=== PATIENT | male | born 1945 | race Caucasian/White ===

== ENCOUNTER → 2024-02-05 07:13 | Outpatient (REF) | payer MEDICARE, OTHER, SELFPAY ==
[2024-02-05 09:19] LABS: HDL Cholesterol 40 mg/dl; LDL Cholesterol, Calculated 98 mg/dl; Total Cholesterol 159 mg/dl (50-199); Triglyceride 109 mg/dl (10-149); Very Low Density Lipoprotein 21 mg/dl (0-30)
[2024-02-05 11:40] LABS: Glycohemoglobin (HgbA1c) 6.8 % (4.0-5.6)
== END ==
LOC: REG 07:13
PROVIDERS: ATTENDING PHYSICIAN Family Medicine
DX: E11.22 Type 2 diabetes mellitus with diabetic chronic kidney disease (principal)
CPT/HCPCS: 36415; 80061; 83036

== ENCOUNTER → 2024-02-06 10:07 | Outpatient (REF) | payer MEDICARE, OTHER, SELFPAY ==
[2024-02-06 11:34] LABS: ALT (SGPT) 37 U/L (0-50); AST (SGOT) 44 U/L (17-59); Albumin 4.5 g/dl (3.5-5.0); Alkaline Phosphatase 95 U/L (38-126); Blood Urea Nitrogen 28 mg/dl (9-20); Calcium 9.9 mg/dl (8.4-10.2); Carbon Dioxide 25 mmol/L (22-30); Chloride 102 mmol/L (98-107); Glucose 131 mg/dl (70-99); Potassium 4.8 mmol/L (3.5-5.1); Sodium 142 mmol/L (135-145); Total Protein 7.6 g/dl (6.3-8.2); eGFR 52.09
== END ==
LOC: REG 10:07
PROVIDERS: ATTENDING PHYSICIAN Family Medicine
DX: E11.22 Type 2 diabetes mellitus with diabetic chronic kidney disease (principal); N18.31 Chronic kidney disease, stage 3a; I12.9 Hypertensive chronic kidney disease with stage 1 through stage 4 chronic kidney disease, or unspecified chronic kidney disease; Z12.11 Encounter for screening for malignant neoplasm of colon
CPT/HCPCS: 36415; 80053

== ENCOUNTER → 2024-12-03 12:37 | Outpatient (REF) | payer MEDICARE, OTHER, SELFPAY | LOC: RCS 12:37 | PROVIDERS: ATTENDING PHYSICIAN Internal Medicine Cardiovascular Disease; FAMILY PHYSICIAN Family Medicine | DX: R06.02 Shortness of breath (principal) | CPT/HCPCS: 93306 ==

== ENCOUNTER 2024-12-04 14:30 | Inpatient (IN) | payer MEDICARE, OTHER, SELFPAY ==
[2024-12-04] VITALS (14 sets, daily range): BP systolic 103–150; BP diastolic 62–111; BMI 31.8
[2024-12-04 11:25] LABS: Hematocrit 47.0 % (39.0-52.0); Hemoglobin 16.4 g/dL (13.0-18.0); Mean Corp Hgb Conc. 34.9 g/dL (33.0-37.0); Mean Corpuscular Volume 98.3 fL (80.0-94.0); Nucleated Red Blood Cells % 0 % (-); Platelet Count 129 10^3/uL (130-400); Red Cell Dist. Width 14.7 % (11.5-14.5)
[2024-12-04 11:33] LABS: INR 1.01; PT 13.8 Sec (11.4-14.6)
[2024-12-04 11:34] LABS: APTT 32.4 Sec (23.4-35.0)
[2024-12-04 11:41] LABS: ALT (SGPT) 37 U/L (0-50); AST (SGOT) 43 U/L (17-59); Albumin 4.6 g/dl (3.5-5.0); Alkaline Phosphatase 103 U/L (38-126); Blood Urea Nitrogen 19 mg/dl (9-20); Calcium 9.7 mg/dl (8.4-10.2); Carbon Dioxide 20 mmol/L (22-30); Chloride 108 mmol/L (98-107); Estimated Creatinine Clearance 62 ml/min; Glucose 148 mg/dl (70-99); Potassium 4.4 mmol/L (3.5-5.1); Sodium 140 mmol/L (135-145); Total Protein 8.5 g/dl (6.3-8.2); eGFR > 60.00
--- NOTE | 2024-12-04 11:44 | CON.CAR ---
Addendum entered and electronically signed by Morris Jordan MD 12/04/24 15:40:
Attending addendum: Patient seen and examined. PA note reviewed and findings independently confirmed by me. Briefly, this is a 78-year-old gentleman who reported the relatively recent onset of exertional chest tightness and dyspnea. He is a
longstanding diabetic with a history of hypertension and hyperlipidemia. He has been diabetic for about 15 years with reportedly reasonably well-controlled hemoglobin A1c. He states that his symptoms have been occurring at fairly low levels of
exertion. He experienced chest discomfort after walking on the treadmill for 3-1/2 minutes with symptoms improving with rest. Stress images were without transient ischemia and perfusion appears normal. However, given his history and high risk
stress study findings he is referred for coronary angiography.
GEN: AAO x 3.��No acute distress
HEENT:��NC/AT, sclera are anicteric, hearing and nares are normal.
NECK: Supple.��Normal JVP
LUNGS: Clear to bases bilaterally.��No wheezing
CV: Regular rate and rhythm.��Normal S1/S2.��Murmur: II/ USB
ABD : Soft, NT, ND, No HSM
EXT: No CCE
NEURO: No focal neurologic deficits
RECOMMENDATION:
-Refer for coronary angiography
-I met with the patient and his brother to review the catheterization procedure including risk and benefit. Took time to answer all questions.
Original Note:
Consultation
Consultation Request
Date/Time Consultation Performed: 12/04/24
Performing Provider: Keyla Lorenzo PA-C for Dr. Jordan
Reason for Consultation: CP, SOB during stress testing
Medical History
-
Chief Complaint: CP, SOB with exertion
History of Present Illness:
Patient is a 78-year-old male with past medical history of hypertension, hyperlipidemia, type 2 diabetes, mild , gout, CKD who was seen in cardiology office as new patient several weeks ago due to complaints of exertional dyspnea and chest
tightness, relieved with rest. Reports has never had rest pain. Does report that his symptoms seem to be progressing over the last several months. His brother at bedside relates that with recent travel to [place] he was rarely able to keep up with
the group on tours and was 'huffing and puffing'. He states then most recently when they went to [place] he was having significant difficulty with exertion and frequently needed to stop to rest. Had echo with preserved EF and mild . He was
arranged for exercise nuclear stress test and at 3.5-minute alycia developed recurrence of symptoms, again relieved by rest. Stress imaging without clear ischemia and TID within normal limits, but did not meet target heart rate. He was referred to
the ER for evaluation and cardiac catheterization. He is presently chest pain-free. He reports he feels his blood sugars have been relatively well-controlled. Denies known history of lung disease. Remote prior cigar use.
PMH:
Hypertension
Hyperlipidemia
Type 2 diabetes
Mild
Gout
CKD
Remote cigar use
FH of CAD
Past Medical History
Past Medical History: Other (in HPI)
Social History
Tobacco: Former Smoker (cigars)
Personal:
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
Family History
Family History: CAD (CABG in father)
Allergies / Home Medications
Allergy/AdvReac Type Severity Reaction Status Date / Time
Penicillins Allergy Unknown Verified 07/01/17 12:07
�Medication �Instructions �Recorded �Confirmed �Type
allopurinol 300 mg tablet 300 mg PO DAILY 07/01/17 07/01/17 History
atenolol 50 mg-chlorthalidone 25 1 tab PO DAILY 07/01/17 07/01/17 History
mg tablet (Tenoretic)
colchicine 0.6 mg tablet 0.6 mg PO PRN PRN gout 07/01/17 07/01/17 History
lisinopril 10 mg tablet 10 mg PO DAILY 07/01/17 07/01/17 History
meloxicam 7.5 mg tablet 7.5 mg PO PRN PRN prn 07/01/17 07/01/17 History
sertraline 50 mg tablet 50 mg PO DAILY 07/01/17 07/01/17 History
simvastatin 20 mg tablet 20 mg PO DAILY 07/01/17 07/01/17 History
ciprofloxacin HCl 500 mg tablet 500 mg PO BID #6 tabs 07/03/17 Rx
(Cipro)
metformin 1,000 mg tablet 1,000 mg PO BID ##0 07/03/17 07/01/17 Rx
Review of Systems
-
History Source: Patient and Family
All other systems: Negative unless noted
Physical Exam
Vital Signs
Temp Pulse Resp BP Pulse Ox
97.7 F 79 15 135/85 95
12/04/24 10:07 12/04/24 11:00 12/04/24 11:00 12/04/24 11:00 12/04/24 11:00
Physical Exam
General: No Apparent Distress and Comfortable
HEENT: Normocephalic, Anicteric and Moist Mucous Membranes
Respiratory: Clear and Non Labored Respirations
Cardiac: S1/S2, Regular Rhythm and Murmur
GI: Soft, Non Tender, Non Distended and Normal Bowel Sounds
Musculoskeletal: No Clubbing, No Cyanosis and No Edema
Skin: Warm and Dry
Neuro: AO x 3
Impression / Plan
-
Primary Construction Site Crossing Guard: Dr. Rincon
Assessment:
Exertional dyspnea/chest and jaw discomfort
Abnormal Stress test, recurrence of above symptoms during
Concern for [place]
Hypertension
Hyperlipidemia
Type 2 diabetes
Mild
Gout
CKD
Remote cigar use
FH of CAD
ECHO 12/03/24: EF 60%, mild with mean pressure gradient 9 mmHg, trace AR, no significant change compared to prior, no regional wall motion abnormalities noted
Plan:
- Patient was seen in office 2 weeks ago for symptoms of exertional dyspnea and chest/jaw discomfort. No symptoms ever occurring at rest. Presented for stress test today and had recurrence of above symptoms with exercise, improved with resting.
Referred to ER and plan for cardiac catheterization today
- Initial troponin negative
- Presently chest pain-free
- Given 324 mg aspirin in ER
- EKG sinus rhythm with first-degree AV block and PACs
- Further recommendations pending results of cardiac catheterization
- Creatinine stable at 1.2
- Check lipid panel and hemoglobin A1c
- Discussed procedure with patient and brother at bedside in detail
- Discussed with primary shooter helper
Data Reviewed
-
EKG: Tracing Personally Visualized and interpreted
Medical Tests (Nuc Med, Echo etc): Report Reviewed by me
Labs: Labs Reviewed by me
Old Records: Reviewed
[2024-12-04 11:51] LABS: Troponin I 0.012 ng/ml
[2024-12-04] MEDS: LOW STRENGTH ASPIRIN 324 MG PO (11:54)
[2024-12-04 14:31] LABS: D-Dimer 0.57 ug/mlFEU (0.00-0.50)
--- NOTE | 2024-12-04 15:00 | PTCARENOTE ---
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 Pt is Ox3 and appropriate, not complaining of any jaw pressure like he was during the earlier stress test. 1� AVB on tele with occasional PAC's. R band intact with no oozing or hematoma. Breath sounds are clear,
97% on RA. Stress inc, gave pt a pad and disposable underwear for the night. Tolerating diet without issue. Skin intact. IV sites intact. Call grijalva within reach. Pt makes needs known.
--- NOTE | 2024-12-04 15:20 | CONSULT.CT ---
Consultation
-
Date/Time Consultation Requested: 12/04/24
Date/Time Consultation Performed: 12/04/24
Requesting Provider: Julian
Performing Provider: Francine Martinez PA-C for Dr. Tyler Caputo
Reason for Consultation: CABG eval
Patient History
Physicians
Family Physician: Nathaniel Loco
Outpatient Appeals Board Referee: Mckenzie
Inpatient Appeals Board Referee: ALVARADO
History of Present Illness
Patient is a very pleasant 78-year-old male who presented to outpatient cardiology with complaints of significant shortness of breath and jaw tightness with minimal exertion. He was then scheduled for a stress test this morning which was markedly
positive and went straight for left heart catheterization this afternoon. Patient was noted to have severe multivessel coronary artery disease, CT surgery consulted for evaluation for CABG.
Past Medical History
HTN
HLD
NIDDM
bells palsy 2003
Past Surgical History
excision of left neck abscessed lymph node
Family History
Father: at Age (86)
Family Medical History: CAD (Father with hx bypass surgery)
Social History
Alcohol: Occasional (<1 drink/month)
Drug: None
Tobacco: Former Smoker (remote use of cigars)
Personal:
Living: Alone
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
Allergies
Allergy/AdvReac Type Severity Reaction Status Date / Time
Penicillins Allergy Unknown Verified 07/01/17 12:07
Home Medications
�Medication �Instructions �Recorded �Confirmed �Type
allopurinol 300 mg tablet 300 mg PO DAILY 07/01/17 07/01/17 History
atenolol 50 mg-chlorthalidone 25 1 tab PO DAILY 07/01/17 07/01/17 History
mg tablet (Tenoretic)
colchicine 0.6 mg tablet 0.6 mg PO PRN PRN gout 07/01/17 07/01/17 History
lisinopril 10 mg tablet 10 mg PO DAILY 07/01/17 07/01/17 History
meloxicam 7.5 mg tablet 7.5 mg PO PRN PRN prn 07/01/17 07/01/17 History
sertraline 50 mg tablet 50 mg PO DAILY 07/01/17 07/01/17 History
simvastatin 20 mg tablet 20 mg PO DAILY 07/01/17 07/01/17 History
ciprofloxacin HCl 500 mg tablet 500 mg PO BID #6 tabs 07/03/17 Rx
(Cipro)
metformin 1,000 mg tablet 1,000 mg PO BID ##0 07/03/17 07/01/17 Rx
Review of Systems
-
History Source: Patient
General: Reports No Symptoms
Respiratory: Reports SOB and THURMAN
Cardiac: Reports Other (jaw tightness); Denies Chest Pain
Abdomen/GI: Reports No Symptoms
: Reports No Symptoms
Musculoskeletal: Reports No Symptoms
Skin: Reports No Symptoms
Neurological: Reports No Symptoms
Vascular: Reports No Symptoms
Physical Exam
Vital Signs
Temp 97.7 F 12/04/24 10:07
Temp route: Oral 12/04/24 10:07
Pulse 88 12/04/24 14:21
Resp Rate 16 12/04/24 14:21
Blood pressure 148/93 12/04/24 13:00
MAP (cuff-Mellisa Monitor) 103 12/04/24 13:00
SaO2 95 12/04/24 14:21
Oxygen Mode of Delivery Room air 12/04/24 14:21
Can the patient verbally communicate their pain? Yes 12/04/24 14:42
Actual Weight 100.5 kg 12/04/24 11:02
Body Mass Index (BMI) 31.8 12/04/24 11:02
Labs
12/04/24 11:43
12/04/24 11:43
PT 13.8 Sec (11.4-14.6) 12/04/24 11:17
APTT 32.4 Sec (23.4-35.0) 12/04/24 11:17
Hemoglobin A1c Cancelled 12/04/24 11:43
Troponin I 0.012 ng/ml 12/04/24 11:17
Exam
General: Well Developed, Well Nourished and No Apparent Distress
HEENT: Normocephalic
Neck: Negative JVD or Carotid Bruit
Respiratory: Clear; Negative Wheezes, Crackles or Rhonchi
Cardiac: Regular Rhythm; Negative Murmur or Rub
GI: Soft and Non Tender
Skin: Warm and Dry
Neuro: Nonfocal/Grossly Intact
Extremities: Negative Lower Level Edema
Lymph: No Lymphadenopathy
Psych: Calm
Assessment / Plan
-
positive stress test
angina
multivessel CAD
NIDDM
Films reviewed in detail by Dr. Caputo. Unfortunately his severely diseased coronaries are not amenable to bypass surgery. Dr. Caputo discussed with Dr. Jordan. likely plan for medical management at this time. Please call with questions.
Data Reviewed
-
Registered Dental Assistant: Report Reviewed by me and Discussed with Physician
Echo: Report Reviewed by me and Discussed with Physician
--- NOTE | 2024-12-04 15:31 | ITS.CL.CATH ---
Clinical Studies Specialist - Catheterization
Cardiac Catheterization
Procedure Report:
LEFT HEART CATHETERIZATION
Date of Procedure: December 04, 2024
Referring: Dr. Noah Rincon
PROCEDURES:
1. Left heart catheterization with coronary and single-plane left ventriculography
INDICATION: Chest pain with poor exercise tolerance achieving only 3.5 minutes on a standard Kehinde protocol. Exertional chest discomfort and dyspnea over the past 3 months. Longstanding diabetic and multitude of cardiovascular risk factor. Mild
aortic stenosis with a mean aortic valve gradient of 9 mmHg
ACCESS: Right radial artery, 6 Swedish sheath
HEMODYNAMICS : (mmHg)
AO (s/d) : 124/74
LV (s/d) : 146/13
LVEDP : 24
CORONARY FINDINGS: Three-vessel coronary calcification
DOMINANCE: Left but the right coronary artery was not assessed and thought to be occluded near its origin
LEFT MAIN: Short and unobstructed
LEFT ANTERIOR DESCENDING: The LAD is heavily calcified as it arises from the left main and runs in the anterior interventricular groove. There is a 90% proximal stenosis and 90% stenosis in the mid vessel before the only sizable diagonal branch.
The distal LAD beyond the diagonal branch becomes occluded with the apical vessel noted to fill via left to left collaterals
CIRCUMFLEX: The circumflex is heavily calcified and diffusely diseased vessel. The first obtuse marginal branch arises proximally and is a small caliber vessel. The second obtuse marginal branch appears larger and is occluded in its midportion
with the distal vessel filling via faint left to left collaterals. The circumflex continues in the AV groove with an 80% stenosis and supplies at least 1 small-moderate caliber posterolateral branch. I do not see a PDA fill well. The circumflex
continues in the AV groove and it is difficult to tell whether this is collateralized from the right coronary artery or chilkoot circumflex
RIGHT CORONARY ARTERY: The origin of the right coronary artery was never selectively cannulated and felt to be occluded near its origin.
VENTRICULOGRAPHY: Left ventriculography is performed in an STACK projection. The digital single-plane left ventricular ejection fraction is estimated at 60%. There is apical akinesis and distal inferior hypokinesis
SEDATION: 37 minutes of procedural sedation was utilized. An independent chief medical technologist was present to assist with and help manage the patient's level of consciousness and physiologic status.
RADIATION SUMMARY: Fluoro Time (min): 7.2, Dose (mGy): 756, DAP (Gy.cm2) : 53.5
Closure Device: TR band
CONCLUSIONS
1. Severe multivessel coronary artery disease as described above
2. Preserved LV systolic function
RECOMMENDATIONS
1. Patient will be admitted for CT surgical evaluation given progressive nature of his symptoms which are now occurring at lower levels of exertion
2. Maximize medical therapy
Copy to: Dr. Noah Rincon
--- NOTE | 2024-12-04 16:26 | CM ---
Chart reviewed. Patient is independent of ADLS, lives alone in a 2 STH, 1st level set up, total of 6 NICHOL, 0 DME.
Preoperative and postoperative instructions and restrictions, along with showering instructions provided to the patient. Gave patient a Cardiac Surgery Book. Patient is agreeable to a home visit by CT Transitional RN. Patient with a supportive
brother who will be checking in on the patient. Plan is for the patient to return home wit CT Transitional RN. CM to follow
--- NOTE | 2024-12-04 16:46 | CM ---
Pricing on [facility] through the patient's prescription plan, ID # [id number], , is $144. 59 for a 30 day supply. Free 30 day coupon placed in the patient's red discharge folder.
[2024-12-04] MEDS: NOVOLOG FLEXPEN-MODERATE RESISTANCE SC (17:58)
[2024-12-04] MEDS: LIPITOR 80 MG PO (18:12)
[2024-12-04] MEDS: COREG 6.25 MG PO (20:15)
--- NOTE | 2024-12-04 20:40 | PTCARENOTE ---
Pt aaox3, resting in bed at this time, brother at bedside. R radial cath site with CDI dressing, no swelling or bruising noted, denies pain, Pox 96% RA on the R hand. SR on the monitor, w/ 1st degree HB, HR 90's, VSS. Call grijalva within reach.
[2024-12-04 21:58] LABS: Glucose - Point of Care 132 mg/dl (70-99)
[2024-12-05] VITALS (8 sets, daily range): BP systolic 94–145; BP diastolic 53–100; BMI 31.3
[2024-12-05 05:00] LABS: Hematocrit 44.1 % (39.0-52.0); Hemoglobin 15.2 g/dL (13.0-18.0); Mean Corp Hgb Conc. 34.5 g/dL (33.0-37.0); Mean Corpuscular Volume 98.2 fL (80.0-94.0); Platelet Count 110 10^3/uL (130-400); Red Cell Dist. Width 14.5 % (11.5-14.5)
[2024-12-05 05:12] LABS: Blood Urea Nitrogen 17 mg/dl (9-20); Calcium 9.2 mg/dl (8.4-10.2); Carbon Dioxide 22 mmol/L (22-30); Chloride 108 mmol/L (98-107); Estimated Creatinine Clearance 68 ml/min; Glucose 145 mg/dl (70-99); HDL Cholesterol 31 mg/dl; LDL Cholesterol, Calculated 136 mg/dl; Potassium 4.2 mmol/L (3.5-5.1); Sodium 138 mmol/L (135-145); Very Low Density Lipoprotein 35 mg/dl (0-30); eGFR > 60.00
[2024-12-05 07:56] LABS: Glucose - Point of Care 153 mg/dl (70-99)
[2024-12-05] MEDS: ZESTRIL 5 MG PO (08:00)
[2024-12-05] MEDS: COREG 6.25 MG PO (08:01)
[2024-12-05] MEDS: FARXIGA 10 MG PO (08:01)
[2024-12-05] MEDS: GLUCOTROL XL (EXTENDED RELEASE) 5 MG PO (08:01)
[2024-12-05] MEDS: LOW STRENGTH ASPIRIN 81 MG PO (08:01)
[2024-12-05] MEDS: ZYLOPRIM 300 MG PO (08:01)
[2024-12-05] MEDS: NORVASC 2.5 MG PO (08:02)
[2024-12-05] MEDS: NOVOLOG FLEXPEN-MODERATE RESISTANCE 1 UNITS SC (08:05)
--- NOTE | 2024-12-05 08:08 | W.PN.CARDCBS ---
Today's Communication / Plan
-
Continue medical management attempts for control of angina
Impression / Plan
-
Primary Dining Server: Dr. Rincon
Assessment:
Exertional dyspnea/chest and jaw discomfort
Abnormal Stress test, recurrence of above symptoms during
Concern for [place]
Hypertension
Hyperlipidemia
Type 2 diabetes
Mild
Gout
CKD
Remote cigar use
FH of CAD
ECHO 12/03/24: EF 60%, mild with mean pressure gradient 9 mmHg, trace AR, no significant change compared to prior, no regional wall motion abnormalities noted
Coronary angiography December 04, 2024 finds severe multivessel disease with preserved left ventricular systolic function. LVEDP 24
Lipid profile December 05, 2024 finds total cholesterol 202, LDL 136, HDL 31, triglycerides 176 and VLDL 35
Plan:
Evaluated by CT surgery. CT surgery feels that his severe coronary artery disease is poorly amenable to bypass surgery.
There has been discussion regarding adopting a course of medical management versus consideration for reevaluation for coronary artery bypass surgery.
He is currently pain-free
- Maintain aspirin 81 mg daily (added this admission)
- Maintain carvedilol 6.25 mg twice daily (substituted for atenolol this admission)
- Maintain Norvasc 2.5 mg daily (added this admission)
- Maintain atorvastatin 80 mg daily (added this admission)
We will plan to continue medical management to treat his anginal symptoms.
There have been some discussions regarding evaluation at [facility] with Dr Gilbert Browning (CT Surgery) for second opinion regarding consideration for coronary artery bypass grafting surgery.
I have discussed this case with the patient, Dr. Caputo, Dr. Jordan.
Total time spent today was 53 minutes in preparing to see the patient, seeing the patient and coordination of care. This included review of recent laboratory evaluations, cardiac testing, imaging studies, records as well as personally interviewing
and examining the patient, which included discussion of their tests, review/ordering medications, and communicating with other healthcare professionals and also treatment planning as well as counseling.
Progress Note - Dining Server
Subjective
Date of Service: December 05, 2024
He is sitting having breakfast and has no complaints at rest. No chest pain shortness of breath or palpitations.
Objective
Labs:
12/05/24 04:39
12/05/24 04:39
Labs
Hgb 15.2 g/dL (13.0-18.0) 12/05/24 04:39
Hct 44.1 % (39.0-52.0) 12/05/24 04:39
Plt Count 110 10^3/uL (130-400) L 12/05/24 04:39
PT 13.8 Sec (11.4-14.6) 12/04/24 11:17
INR 1.01 12/04/24 11:17
APTT 32.4 Sec (23.4-35.0) 12/04/24 11:17
Sodium 138 mmol/L (135-145) 12/05/24 04:39
Potassium 4.2 mmol/L (3.5-5.1) 12/05/24 04:39
BUN 17 mg/dl (9-20) 12/05/24 04:39
Creatinine 1.1 mg/dL (0.7-1.3) 12/05/24 04:39
Glucose 145 mg/dl (70-99) H 12/05/24 04:39
Troponins
12/04/24
11:17
Troponin I 0.012
Vital Signs and I&O:
Vital Signs
Temp Pulse Resp BP Pulse Ox
98.1 F 75 18 120/86 97
12/05/24 07:58 12/05/24 05:30 12/05/24 07:58 12/05/24 04:31 12/05/24 07:58
Vital Signs
Temp Pulse Resp BP Pulse Ox
98.1 F 75 18 120/86 97
12/05/24 07:58 12/05/24 05:30 12/05/24 07:58 12/05/24 04:31 12/05/24 07:58
Physical Exam
Physical Exam
Well-appearing elderly man in no acute distress
Regular rate and rhythm with normal S1 and S2, no S3 no S4 degree 1/6 apical holosystolic murmur no rubs
Lungs are clear to auscultation bilaterally without wheezes rales or rhonchi
Extremities no clubbing cyanosis or edema.
Abdomen soft nontender nondistended
Neurologic exam is nonfocal
[2024-12-05 09:08] LABS: Glycohemoglobin (HgbA1c) 7.5 % (4.0-5.6)
[2024-12-05 13:28] LABS: Glucose - Point of Care 117 mg/dl (70-99)
[2024-12-05] MEDS: NOVOLOG FLEXPEN-MODERATE RESISTANCE SC ×2 (14:07→17:30)
--- NOTE | 2024-12-05 14:23 | W.PN.UPDATE ---
Update Note
Progress Note Update
Attending addendum:
-Will start clopidogrel 600mg x 1 then 75 mg daily
-Increase Coreg for better HR control to 12.5 mg bid
-Increase amlodipine for better antianginal and BP control
-Protonix given dual antiplatelet
-CT TAVR protocol to assess coronary vessels. Discussed with Dr. Maurer
[2024-12-05] MEDS: PROTONIX 40 MG PO (14:50)
[2024-12-05] MEDS: PLAVIX 600 MG PO (14:50)
--- NOTE | 2024-12-05 15:18 | PTCARENOTE ---
Pt received this am with no c/o of chest pain or sob. Right rad site WNL. OOB ad whit, gait steady. C/o of mild nausea which has resolved.
--- NOTE | 2024-12-05 16:00 | PTCARENOTE ---
Assumed care of pt from prev RN; Pt AAOx3 w/no c/o CP or SOB. Pt's VSS w/HR in the 70's-80's & BP 145/99 this PM. Pt is SR w/1st deg AVB on telemetry monitoring. Pt w/R radial site w/dressing C/D/I w/no signs or symptoms of bleeding or hematoma. Pt
OOB to CH/amb in rm w/steady gait. Plan of care discussed & pt w/callbell within reach.
[2024-12-05 17:24] LABS: Glucose - Point of Care 114 mg/dl (70-99)
[2024-12-05] MEDS: LIPITOR 80 MG PO (18:51)
[2024-12-05 20:39] LABS: Glucose - Point of Care 292 mg/dl (70-99)
[2024-12-05] MEDS: COREG 12.5 MG PO (21:02)
--- NOTE | 2024-12-05 23:34 | PTCARENOTE ---
Assumed care on pt at 1900, aaox3, no c/o cp or SOB. SR w/1st degree AVB on telemetry monitoring. R radial site dressing CDI, no s/s of bleeding or hematoma. Call grijalva within reach, POC ongoing.
[2024-12-06 04:02] VITALS: BP 114/82
[2024-12-06 04:10] VITALS: BMI 31.6
[2024-12-06 04:50] LABS: Hematocrit 46.1 % (39.0-52.0); Hemoglobin 15.9 g/dL (13.0-18.0); Mean Corp Hgb Conc. 34.5 g/dL (33.0-37.0); Mean Corpuscular Volume 98.3 fL (80.0-94.0); Platelet Count 124 10^3/uL (130-400); Red Cell Dist. Width 14.4 % (11.5-14.5)
[2024-12-06 05:07] LABS: Blood Urea Nitrogen 25 mg/dl (9-20); Calcium 9.3 mg/dl (8.4-10.2); Carbon Dioxide 25 mmol/L (22-30); Chloride 105 mmol/L (98-107); Estimated Creatinine Clearance 53 ml/min; Glucose 150 mg/dl (70-99); Potassium 4.3 mmol/L (3.5-5.1); Sodium 138 mmol/L (135-145); eGFR 52.09
[2024-12-06 07:25] VITALS: BP 111/79
--- NOTE | 2024-12-06 07:57 | W.PN.CARDCBS ---
Addendum entered and electronically signed by Dolorse Davis PA-C 12/08/24 16:19:
[id number]
Addendum entered and electronically signed by Noah Rincon MD 12/06/24 10:14:
I saw and examined the patient.
The ELEMENTARY READING SPECIALIST or PA's note was reviewed and I agree with the note.
Comment: General: Well developed, well nourished in NAD.
Neck: Supple, no JVD, HJR, carotids +2 B/L, no bruits bilaterally.
Heart: Non displaced PMI, RRR, no murmurs, No S3, S4, no rubs.
Lungs: Scattered rhonchi
Extremities: No clubbing, cyanosis or edema bilaterally.
Neuro: Grossly nonfocal, awake, alert and oriented x3.
For CT to better evaluate RCA. Recheck renal profile in 1 week. Discharge later today if able to ambulate without chest pain or shortness of breath. Discharge time greater than 30 minutes.
Original Note:
Today's Communication / Plan
-
CT TAVR protocol today to visualize cors and get a better sense of RCA
Cre up to 1.4, but baseline prior to admission from 1.1 to 1.6 over the last 3 years. Recheck BMP this upcoming week
He might be able to go home today pending timing of CT and BP/symptoms
Impression / Plan
-
PCP: Dr. Loco
Primary Nurse Receptionist: Dr. Rincon
Assessment:
Admitted with exertional dyspnea/chest and jaw discomfort 12/04/24
Abnormal Stress test, recurrence of above symptoms during 12/04/24
Concern for USA
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
cath results with heavily calcified LAD with 90% prox and 90% mid lesions before the only sizable diagonal branch and distal LAD beyond the diagonal branch becomes occluded with the apical vessel noted to fill via left to left collaterals, Circ
heavily calcified and diffusely diseased vessel, small caliber OM-1, OM-2 larger with 100% midportion and distal vessel filling via faint left to left collaterals, Circ continues in the AV groove with an 80% stenosis and supplies at least 1
small-moderate caliber PLB, no signs of a PDA filing well, Circ continues in the AV groove and it is difficult to tell whether this is collateralized from the RCA or [place] circumflex, origin of the RCA was never selectively cannulated and felt to
be occluded near its origin 12/06/24
Hypertension
Hyperlipidemia
Type 2 diabetes
Mild
Gout
CKD
Remote cigar use
FH of CAD
AUDRA
ECHO 12/03/24: EF 60%, mild with mean pressure gradient 9 mmHg, trace AR, no significant change compared to prior, no regional wall motion abnormalities noted
Cath 12/04/24: finds severe multivessel disease with preserved left ventricular systolic function. LVEDP 24
Plan:
-Patient with chest pain during stress test at submax levels and referred for cath that showed MV CAD
-Patient with MV CAD by cath, RCA was not selectively cannulated and plan is for CT chest TAVR protocol 12/06/24 to better visualized cors and RCA in particular.
-Patient was evaluated for CABG by CT surgery at [facility] and not felt to be appropriate candidate for CABG due to lack of targets on the LAD. Plan is for medical management and reassess at tertiary care center. There have been some discussions
regarding evaluation at [facility] with Dr Gilbert Browning (CT Surgery) for second opinion regarding consideration for CABG.
-New to aspirin 81 mg daily
-New to Plavix, patient noted a migraine after 600 mg loading dose on 12/05/24 PM, recheck for symptoms after 75 mg daily dose started 12/06/24 AM.
-New to Coreg and dose increased to 12.5 mg BID 12/06/24. HP remains in the 80s, SR, no palpitations
-New to amlodipine and dose increased to 5 mg daily. BP 111/79 prior to morning meds, recheck BP and symptoms later in the day.
-Outpatient dose of lisinopril decreased to 5 mg daily to allow for antianginal meds to be increased. Now noted to have AUDRA so will hold as of 12/06/24
-LDL 136, new to atorvastatin 80 mg daily
-New to Farxiga 10 mg daily
-Cre up to 1.4 on 12/06/24 following cath 12/04/24. Labs in [facility] reviewed by me as far back as 2021 and Cre ranges from 1.1 to 1.6, but Cre was 1.1 on 12/05/24. Hold lisinopril for now.
Progress Note - Nurse Receptionist
Subjective
Date of Service: December 06, 2024
No chest pain, not feeling lightheaded seated in chair in his room
Objective
Labs:
12/06/24 04:08
12/06/24 04:08
Labs
Hgb 15.9 g/dL (13.0-18.0) 12/06/24 04:08
Hct 46.1 % (39.0-52.0) 12/06/24 04:08
Plt Count 124 10^3/uL (130-400) L 12/06/24 04:08
PT 13.8 Sec (11.4-14.6) 12/04/24 11:17
INR 1.01 12/04/24 11:17
APTT 32.4 Sec (23.4-35.0) 12/04/24 11:17
Sodium 138 mmol/L (135-145) 12/06/24 04:08
Potassium 4.3 mmol/L (3.5-5.1) 12/06/24 04:08
BUN 25 mg/dl (9-20) H 12/06/24 04:08
Creatinine 1.4 mg/dL (0.7-1.3) H 12/06/24 04:08
Glucose 150 mg/dl (70-99) H 12/06/24 04:08
Troponins
12/04/24
11:17
Troponin I 0.012
Vital Signs and I&O:
Vital Signs
Temp Pulse Resp BP Pulse Ox
97.8 F 105 18 114/82 95
12/06/24 07:22 12/06/24 06:00 12/06/24 07:22 12/06/24 04:02 12/06/24 07:22
Vital Signs
Temp Pulse Resp BP Pulse Ox
97.8 F 105 18 114/82 95
12/06/24 07:22 12/06/24 06:00 12/06/24 07:22 12/06/24 04:02 12/06/24 07:22
Intake & Output
12/04/24 12/05/24 12/06/24 12/07/24
06:59 06:59 06:59 06:59
Intake Total 960 / 960
Balance 960 / 960
Physical Exam
Physical Exam
GEN: NAD. AAO to person, place and situation
HEENT: MMM
LUNGS: RA. No audible wheeze
CV: SR on tele
[2024-12-06 08:04] LABS: Glucose - Point of Care 144 mg/dl (70-99)
[2024-12-06] MEDS: COREG 12.5 MG PO (08:14)
[2024-12-06] MEDS: PROTONIX 40 MG PO (08:14)
[2024-12-06] MEDS: NOVOLOG FLEXPEN-MODERATE RESISTANCE SC (08:14)
[2024-12-06] MEDS: PLAVIX 75 MG PO (08:14)
[2024-12-06] MEDS: ZESTRIL 5 MG PO (08:14)
[2024-12-06] MEDS: ZYLOPRIM 300 MG PO (08:15)
[2024-12-06] MEDS: NORVASC 5 MG PO (08:15)
[2024-12-06] MEDS: FARXIGA 10 MG PO (08:15)
[2024-12-06] MEDS: GLUCOTROL XL (EXTENDED RELEASE) 5 MG PO (08:15)
[2024-12-06] MEDS: LOW STRENGTH ASPIRIN 81 MG PO (08:15)
--- NOTE | 2024-12-06 10:05 | W.DS.TRANS ---
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
-
Discharge Instructions:
Discharge Diagnosis/Procedures Cardiac cath, multivessel coronary artery
disease
Diet Low Cholesterol,Diabetic, Carb Controlled
Activity No strenuous activity
Additional Activity No heavy lifting greater than 10lbs, no sexual
activity until after cardiac surgery. If you
have chest pain call 911
Driving Restrictions No driving for 24 hours
Bathing Restrictions OK to Shower
Blood Work Check blood work to monitor kidney function the
week of 12/08/24
Instructions:
Stand-Alone Forms: DC Instructions- Cath/EP Lab
Changes to Home Medications: Yes
Discharge Medications:
DC Medications w/original date entered in [facility]
allopurinol 300 mg tablet 300 mg PO DAILY Gout 07/01/17
colchicine 0.6 mg tablet 0.6 mg PO PRN PRN gout 07/01/17
amlodipine 5 mg tablet 5 mg PO DAILY Heart disease/condition #30 tabs 12/06/24
aspirin 81 mg chewable tablet 81 mg PO DAILY Heart disease/condition #30 tabs 12/06/24
atorvastatin 80 mg tablet 80 mg PO QPM High cholesterol #30 tabs 12/06/24
carvedilol 12.5 mg tablet 12.5 mg PO BID Heart disease/condition #60 tabs 12/06/24
clopidogrel 75 mg tablet 75 mg PO DAILY Heart disease/condition #30 tabs 12/06/24
empagliflozin 10 mg tablet (Jardiance) 10 mg PO DAILY Heart disease/condition #30 tabs 12/06/24
glipizide 5 mg tablet, extended release 24 hr 5 mg PO DAILY Diabetes #30 tabs 12/06/24
metformin 1,000 mg tablet 1,000 mg PO BID Diabetes #60 tabs 12/06/24
pantoprazole 40 mg tablet,delayed release 40 mg PO DAILY Gastrointestinal issue #30 tabs 12/06/24
Home Medication Changes
Of note, med list was never reconciled on admission
New to Protonix, Coreg, Plavix, amlodipine, atorvastatin and aspirin
Simvastatin and atenolol stopped
Pending Results: Yes
Additional Pending Results:
CT for TAVR to evaluate coronary arteries and better visualize RCA
[2024-12-06 11:07] VITALS: BP 118/90
[2024-12-06 11:49] VITALS: BP 146/85
[2024-12-06] MEDS: PREVNAR 20 0.5 ML IM (12:35)
--- NOTE | 2024-12-06 13:19 | PTCARENOTE ---
Discharge teaching completed. Patient verbalized understanding. IV and telemetry removed. Pneumonia vaccine given in left deltoid. Patient escorted to main lobby in a wheelchair.
== END 2024-12-06 13:21 | disposition home or self-care (01) | DRG 287 ==
LOC: IVU 14:30
PROVIDERS: Nurse Practitioner Adult Health; ADMITTING PHYSICIAN Internal Medicine Cardiovascular Disease; CONSULT PHYSICIAN Thoracic Surgery (Cardiothoracic Vascular Surgery); FAMILY PHYSICIAN Family Medicine; OTHER PHYSICIAN Internal Medicine Interventional Cardiology
PROC: B2111ZZ Fluoroscopy of Multiple Coronary Arteries using Low Osmolar Contrast (ICD-10-PCS; 2024-12-04)
PROC: B2151ZZ Fluoroscopy of Left Heart using Low Osmolar Contrast (ICD-10-PCS; 2024-12-04)
PROC: 4A023N7 Measurement of Cardiac Sampling and Pressure, Left Heart, Percutaneous Approach (ICD-10-PCS; 2024-12-04)
PROC: 3E0234Z Introduction of Serum, Toxoid and Vaccine into Muscle, Percutaneous Approach (ICD-10-PCS; 2024-12-06)
DX: I25.110 Atherosclerotic heart disease of native coronary artery with unstable angina pectoris (principal); N17.9 Acute kidney failure, unspecified; N18.31 Chronic kidney disease, stage 3a; E78.5 Hyperlipidemia, unspecified; M10.9 Gout, unspecified; Z79.899 Other long term (current) drug therapy; Z87.891 Personal history of nicotine dependence; Z23 Encounter for immunization
CPT/HCPCS: 75572; 78452; 80048; 80053; 80061; 82962; 83036; 84484; 85025; 85027; 85379; 85610; 85730; 90677; 93005; 93017; 93458; 99284; A9500; C1894; G0009; Q9967

== ENCOUNTER → 2024-12-08 09:51 | Outpatient (REF) | payer MEDICARE, OTHER, SELFPAY ==
[2024-12-08 11:27] LABS: Blood Urea Nitrogen 20 mg/dl (9-20); Calcium 9.6 mg/dl (8.4-10.2); Carbon Dioxide 23 mmol/L (22-30); Chloride 106 mmol/L (98-107); Glucose 164 mg/dl (70-99); Potassium 4.8 mmol/L (3.5-5.1); Sodium 140 mmol/L (135-145); eGFR 47.95
== END ==
LOC: REG 09:51
PROVIDERS: ATTENDING PHYSICIAN Internal Medicine Cardiovascular Disease; FAMILY PHYSICIAN Family Medicine
DX: I25.9 Chronic ischemic heart disease, unspecified (principal); N17.9 Acute kidney failure, unspecified
CPT/HCPCS: 36415; 80048

== ENCOUNTER → 2025-05-18 10:40 | Outpatient (REF) | payer MEDICARE, OTHER, SELFPAY ==
[2025-05-18 11:42] LABS: Hematocrit 40.8 % (39.0-52.0); Hemoglobin 13.9 g/dL (13.0-18.0); Mean Corp Hgb Conc. 34.1 g/dL (33.0-37.0); Mean Corpuscular Volume 99.3 fL (80.0-94.0); Nucleated Red Blood Cells % 0 % (-); Platelet Count 97 10^3/uL (130-400); Red Cell Dist. Width 14.6 % (11.5-14.5)
[2025-05-18 12:02] LABS: Microalb - Urine Creatinine 84.600 mg/dl
[2025-05-18 12:20] LABS: ALT (SGPT) 43 U/L (0-50); AST (SGOT) 43 U/L (17-59); Albumin 4.4 g/dl (3.5-5.0); Alkaline Phosphatase 140 U/L (38-126); Blood Urea Nitrogen 23 mg/dl (9-20); Calcium 9.2 mg/dl (8.4-10.2); Carbon Dioxide 25 mmol/L (22-30); Chloride 105 mmol/L (98-107); Glucose 111 mg/dl (70-99); HDL Cholesterol 42 mg/dl; LDL Cholesterol, Calculated 84 mg/dl; Potassium 4.3 mmol/L (3.5-5.1); Sodium 139 mmol/L (135-145); Total Protein 7.8 g/dl (6.3-8.2); Very Low Density Lipoprotein 17 mg/dl (0-30); eGFR 51.77
[2025-05-18 12:26] LABS: Glycohemoglobin (HgbA1c) 6.4 % (4.0-5.9)
[2025-05-18 12:30] LABS: Microalbumin, Random Urine 21.5 mg/dl (0.6-1.7)
== END ==
LOC: REG 10:40
PROVIDERS: ATTENDING PHYSICIAN Family Medicine; REFERRING PHYSICIAN Internal Medicine Cardiovascular Disease
DX: E11.22 Type 2 diabetes mellitus with diabetic chronic kidney disease (principal); E11.59 Type 2 diabetes mellitus with other circulatory complications; I12.9 Hypertensive chronic kidney disease with stage 1 through stage 4 chronic kidney disease, or unspecified chronic kidney disease; N18.31 Chronic kidney disease, stage 3a; E78.00 Pure hypercholesterolemia, unspecified; I25.10 Atherosclerotic heart disease of native coronary artery without angina pectoris
CPT/HCPCS: 36415; 80053; 80061; 82043; 82570; 83036; 85025